=== PATIENT | male | born 2000 | race American Indian/Alaskan Native ===

== ENCOUNTER 2018-05-28 19:32 | Emergency (ER) | payer SELFPAY ==
[2018-05-28 20:32] LABS: Basophils # (Auto) 0.1 K/mm3 (0.0-0.1); Basophils % (Auto) 0.8 % (0.0-1.8); Eosinophils # (Auto) 0.2 K/mm3 (0.0-0.4); Eosinophils % (Auto) 2.5 % (0.0-4.3); Hematocrit 43.6 % (35.5-45.6); Hemoglobin 14.3 gm/dl (11.8-15.2); Lymphocytes # (Auto) 2.6 K/mm3 (1.2-5.4); Lymphocytes % (Auto) 38.6 % (13.4-35.0); Mean Corpuscular HGB Conc 33 % (32-34); Monocytes # (Auto) 0.7 K/mm3 (0.0-0.8); Platelet Count 206 K/mm3 (140-440); Red Blood Count 6.33 M/mm3 (3.65-5.03); Red Cell Distribution Width 14.5 % (13.2-15.2)
[2018-05-28 20:35] LABS: Mean Corpuscular Hemoglobin 23 pg (28-32); Mean Corpuscular Volume 69 fl (84-94)
[2018-05-28 20:49] LABS: Alanine Aminotransferase 43 units/L (7-56); Albumin 4.6 g/dL (3.9-5); BUN/Creatinine Ratio 9; Blood Urea Nitrogen 8 mg/dL (9-20); Calcium 9.4 mg/dL (8.4-10.2); Hemolysis Index 2
--- NOTE | 2018-05-28 22:23 | Emergency Department Report ---
ED Altered Mental Status HPI - General Chief Complaint: Seizure Stated Complaint: SEIZURE Time Seen by Provider: 05/28/18 22:07 Source: patient Mode of arrival: Wheelchair Limitations: No Limitations - History of Present Illness MD Complaint: altered mental status, decreased responsiveness -: Sudden Severity: Unable to Determine Consistency of Symptoms: waxing and waning Context: unknown Associated Symptoms: weakness - Related Data Previous Rx's Medication Instructions Recorded Last Taken Type SUMAtriptan SUCCINATE [Imitrex] 25 mg PO Q8H PRN #12 tablet 05/29/18 Unknown Rx Allergies Allergy/AdvReac Type Severity Reaction Status Date / Time shellfish derived Allergy Hives Verified 05/28/18 19:51 ED Review of Systems ROS: Stated complaint: SEIZURE Other details as noted in HPI Comment: All other systems reviewed and negative Constitutional: denies: chills, fever Eyes: denies: eye pain ENT: denies: ear pain Respiratory: denies: cough, shortness of breath Cardiovascular: denies: chest pain, palpitations, dyspnea on exertion, orthopnea , edema, syncope Endocrine: no symptoms reported Gastrointestinal: denies: abdominal pain, nausea, vomiting, diarrhea Genitourinary: denies: urgency, dysuria, frequency Musculoskeletal: denies: back pain, joint swelling Skin: denies: rash, lesions Neurological: weakness (Generalized). denies: headache, numbness, paresthesias , confusion Psychiatric: denies: anxiety, depression Hematological/Lymphatic: denies: easy bleeding, easy bruising ED Past Medical Hx - Past Medical History Previous Medical History?: Yes Hx Asthma: Yes - Surgical History Past Surgical History?: No - Social History Smoking Status: Current Every Day Smoker Substance Use Type: None - Medications Home Medications: Home Medications Medication Instructions Recorded Confirmed Last Taken Type SUMAtriptan SUCCINATE [Imitrex] 25 mg PO Q8H PRN #12 tablet 05/29/18 Unknown Rx ED Physical Exam - General Limitations: No Limitations General appearance: alert, lethargic - Head Head exam: Present: atraumatic, normocephalic, normal inspection - Eye Eye exam: Present: normal appearance, PERRL, EOMI Pupils: Present: normal accommodation - ENT ENT exam: Present: normal exam, normal orophraynx, mucous membranes moist - Neck Neck exam: Present: normal inspection, full ROM. Absent: tenderness - Respiratory Respiratory exam: Present: normal lung sounds bilaterally. Absent: respiratory distress, wheezes, rales, rhonchi, stridor - Cardiovascular Cardiovascular Exam: Present: regular rate, normal rhythm, normal heart sounds - GI/Abdominal GI/Abdominal exam: Present: soft, normal bowel sounds. Absent: distended, tenderness, guarding, rebound, rigid - Extremities Exam Extremities exam: Present: full ROM, normal capillary refill - Back Exam Back exam: Present: normal inspection, full ROM - Neurological Exam Neurological exam: Present: alert - Psychiatric Psychiatric exam: Present: normal affect, depressed, flat affect - Skin Skin exam: Present: warm, dry, intact, normal color. Absent: rash - Assessment Assessment Interval: Baseline - Level of Consciousness 1a. Level of Consciousness: alert/keenly responsive - LOC Questions 1b. LOC Questions: answers both correctly - LOC Command 1c. LOC Commands: performs tasks correctly - Best Gaze 2. Best Gaze: normal - Visual 3. Visual: no visual loss - Facial Palsy 4. Facial Palsy: normal symmetrical movement - Motor Arm 5b. Motor Arm Right: no drift 5a. Motor Arm Left: no drift - Motor Leg 6a. Motor Leg Left: no drift 6b. Motor Leg Right: no drift - Limb Ataxia 7. Limb Ataxia: absent - Sensory 8. Sensory: normal - Best Language 9. Best Language: no aphasia - Dysarthria 10. Dysarthria: normal - Extinction and Inattention 11. Extinction/Inattention: no abnormality - Scoring Total Score: 0 Stroke Severity: No Stroke Symptoms ED Course Vital Signs 05/28/18 05/28/18 05/29/18 19:48 22:01 06:00 Temperature 98.9 F 98.5 F Pulse Rate 76 70 73 Respiratory 16 18 Rate Blood Pressure 128/68 Blood Pressure 125/83 113/55 [Left] O2 Sat by Pulse 99 99 Oximetry - Reevaluation(s) Reevaluation #1: 05/29/18 05:10 On reevaluation, patient said his headache has resolved. - Lab Data Result diagrams: 05/28/18 20:20 05/28/18 20:20 Lab Results 05/28/18 05/28/18 05/28/18 Range/Units 20:20 20:20 20:20 WBC 6.6 (4.5-11.0) K/mm3 RBC 6.33 H (3.65-5.03) M/mm3 Hgb 14.3 (11.8-15.2) gm/dl Hct 43.6 (35.5-45.6) % MCV 69 L (84-94) fl MCH 23 L (28-32) pg MCHC 33 (32-34) % RDW 14.5 (13.2-15.2) % Plt Count 206 (140-440) K/mm3 Lymph % (Auto) 38.6 H (13.4-35.0) % [place] % (Auto) 10.0 H (0.0-7.3) % Eos % (Auto) 2.5 (0.0-4.3) % Baso % (Auto) 0.8 (0.0-1.8) % Lymph # 2.6 (1.2-5.4) K/mm3 [place] # 0.7 (0.0-0.8) K/mm3 Eos # 0.2 (0.0-0.4) K/mm3 Baso # 0.1 (0.0-0.1) K/mm3 Seg Neutrophils % 48.1 (40.0-70.0) % Seg Neutrophils # 3.2 (1.8-7.7) K/mm3 Sodium 139 (137-145) mmol/L Potassium 3.5 L (3.6-5.0) mmol/L Chloride 100.9 (98-107) mmol/L Carbon Dioxide 27 (22-30) mmol/L Anion Gap 15 mmol/L BUN 8 L (9-20) mg/dL Creatinine 0.9 (0.8-1.5) mg/dL Estimated GFR > 60 ml/min BUN/Creatinine Ratio 9 % Glucose 88 (75-100) mg/dL Calcium 9.4 (8.4-10.2) mg/dL Total Bilirubin 0.60 (0.1-1.2) mg/dL AST 33 (5-40) units/L ALT 43 (7-56) units/L Alkaline Phosphatase 52 (35-129) units/L Troponin T (0.00-0.029) ng/mL Total Protein 7.6 (6.3-8.2) g/dL Albumin 4.6 (3.9-5) g/dL Albumin/Globulin Ratio 1.5 % TSH 3.130 (0.270-4.200) mlU/mL Urine Color (Yellow) Urine Turbidity (Clear) Urine pH (5.0-7.0) Ur Specific [place] (1.003-1.030) Urine Protein (Negative) mg/dL Urine Glucose (UA) (Negative) mg/dL Urine Ketones (Negative) mg/dL Urine Blood (Negative) Urine Nitrite (Negative) Urine Bilirubin (Negative) Urine Urobilinogen (<2.0) mg/dL Ur Leukocyte Esterase (Negative) Urine WBC (Auto) (0.0-6.0) /HPF Urine RBC (Auto) (0.0-6.0) /HPF U Epithel Cells (Auto) (0-13.0) /HPF Urine Mucus /HPF Urine Opiates Screen Urine Methadone Screen Ur Barbiturates Screen Ur Phencyclidine Scrn Ur Amphetamines Screen U Benzodiazepines Scrn Urine Cocaine Screen U Marijuana (THC) Screen Drugs of Abuse Note Plasma/Serum Alcohol (0-0.07) % 05/28/18 05/28/18 05/28/18 Range/Units 20:20 22:21 22:21 WBC (4.5-11.0) K/mm3 RBC (3.65-5.03) M/mm3 Hgb (11.8-15.2) gm/dl Hct (35.5-45.6) % MCV (84-94) fl MCH (28-32) pg MCHC (32-34) % RDW (13.2-15.2) % Plt Count (140-440) K/mm3 Lymph % (Auto) (13.4-35.0) % [place] % (Auto) (0.0-7.3) % Eos % (Auto) (0.0-4.3) % Baso % (Auto) (0.0-1.8) % Lymph # (1.2-5.4) K/mm3 [place] # (0.0-0.8) K/mm3 Eos # (0.0-0.4) K/mm3 Baso # (0.0-0.1) K/mm3 Seg Neutrophils % (40.0-70.0) % Seg Neutrophils # (1.8-7.7) K/mm3 Sodium (137-145) mmol/L Potassium (3.6-5.0) mmol/L Chloride (98-107) mmol/L Carbon Dioxide (22-30) mmol/L Anion Gap mmol/L BUN (9-20) mg/dL Creatinine (0.8-1.5) mg/dL Estimated GFR ml/min BUN/Creatinine Ratio % Glucose (75-100) mg/dL Calcium (8.4-10.2) mg/dL Total Bilirubin (0.1-1.2) mg/dL AST (5-40) units/L ALT (7-56) units/L Alkaline Phosphatase (35-129) units/L Troponin T (0.00-0.029) ng/mL Total Protein (6.3-8.2) g/dL Albumin (3.9-5) g/dL Albumin/Globulin Ratio % TSH (0.270-4.200) mlU/mL Urine Color Yellow (Yellow) Urine Turbidity Clear (Clear) Urine pH 6.0 (5.0-7.0) Ur Specific [place] 1.026 (1.003-1.030) Urine Protein <15 mg/dl (Negative) mg/dL Urine Glucose (UA) Neg (Negative) mg/dL Urine Ketones Neg (Negative) mg/dL Urine Blood Neg (Negative) Urine Nitrite Neg (Negative) Urine Bilirubin Neg (Negative) Urine Urobilinogen 2.0 (<2.0) mg/dL Ur Leukocyte Esterase Neg (Negative) Urine WBC (Auto) < 1.0 (0.0-6.0) /HPF Urine RBC (Auto) 1.0 (0.0-6.0) /HPF U Epithel Cells (Auto) < 1.0 (0-13.0) /HPF Urine Mucus Few /HPF Urine Opiates Screen Presumptive negative Urine Methadone Screen Presumptive negative Ur Barbiturates Screen Presumptive negative Ur Phencyclidine Scrn Presumptive negative Ur Amphetamines Screen Presumptive negative U Benzodiazepines Scrn Presumptive negative Urine Cocaine Screen Presumptive negative U Marijuana (THC) Screen Presumptive positive Drugs of Abuse Note Disclamer Plasma/Serum Alcohol < 0.01 (0-0.07) % 05/28/18 Range/Units 22:33 WBC (4.5-11.0) K/mm3 RBC (3.65-5.03) M/mm3 Hgb (11.8-15.2) gm/dl Hct (35.5-45.6) % MCV (84-94) fl MCH (28-32) pg MCHC (32-34) % RDW (13.2-15.2) % Plt Count (140-440) K/mm3 Lymph % (Auto) (13.4-35.0) % [place] % (Auto) (0.0-7.3) % Eos % (Auto) (0.0-4.3) % Baso % (Auto) (0.0-1.8) % Lymph # (1.2-5.4) K/mm3 [place] # (0.0-0.8) K/mm3 Eos # (0.0-0.4) K/mm3 Baso # (0.0-0.1) K/mm3 Seg Neutrophils % (40.0-70.0) % Seg Neutrophils # (1.8-7.7) K/mm3 Sodium (137-145) mmol/L Potassium (3.6-5.0) mmol/L Chloride (98-107) mmol/L Carbon Dioxide (22-30) mmol/L Anion Gap mmol/L BUN (9-20) mg/dL Creatinine (0.8-1.5) mg/dL Estimated GFR ml/min BUN/Creatinine Ratio % Glucose (75-100) mg/dL Calcium (8.4-10.2) mg/dL Total Bilirubin (0.1-1.2) mg/dL AST (5-40) units/L ALT (7-56) units/L Alkaline Phosphatase (35-129) units/L Troponin T < 0.010 (0.00-0.029) ng/mL Total Protein (6.3-8.2) g/dL Albumin (3.9-5) g/dL Albumin/Globulin Ratio % TSH (0.270-4.200) mlU/mL Urine Color (Yellow) Urine Turbidity (Clear) Urine pH (5.0-7.0) Ur Specific [place] (1.003-1.030) Urine Protein (Negative) mg/dL Urine Glucose (UA) (Negative) mg/dL Urine Ketones (Negative) mg/dL Urine Blood (Negative) Urine Nitrite (Negative) Urine Bilirubin (Negative) Urine Urobilinogen (<2.0) mg/dL Ur Leukocyte Esterase (Negative) Urine WBC (Auto) (0.0-6.0) /HPF Urine RBC (Auto) (0.0-6.0) /HPF U Epithel Cells (Auto) (0-13.0) /HPF Urine Mucus /HPF Urine Opiates Screen Urine Methadone Screen Ur Barbiturates Screen Ur Phencyclidine Scrn Ur Amphetamines Screen U Benzodiazepines Scrn Urine Cocaine Screen U Marijuana (THC) Screen Drugs of Abuse Note Plasma/Serum Alcohol (0-0.07) % - EKG Data -: EKG Interpreted by Me EKG shows normal: sinus rhythm Rate: bradycardia (53) When compared to previous EKG there are: previous EKG unavailable Interpretation: nonspecific ST-T wave bora, LVH 05/28/18 22:26 No STEMI - Radiology Data Radiology results: report reviewed, image reviewed - Medical Decision Making Patient headache resolving the ED with treatment. I will discharge him home to follow up with her neurologist. Critical care attestation.: If time is entered above; I have spent that time in minutes in the direct care of this critically ill patient, excluding procedure time. ED Disposition Clinical Impression: Altered mental status, unspecified Qualifiers: Altered mental status type: unspecified Qualified Code(s): R41.82 - Altered mental status, unspecified Migraine headache Qualifiers: Migraine type: unspecified Status migrainosus presence: without status migrainosus Intractability: not intractable Qualified Code(s): G43.909 - Migraine, unspecified, not intractable, without status migrainosus Disposition: DC-01 TO HOME OR SELFCARE Is pt being admited?: No Does the pt Need Aspirin: No Condition: Stable Instructions: Migraine Headache (ED) Additional Instructions: Please follow up with Dr Toi Montemayor tomorrow morning. Return to the ED if your condition worsens. Prescriptions: SUMAtriptan SUCCINATE [Imitrex] 25 mg PO Q8H PRN #12 tablet PRN Reason: Headache Referrals: PRIMARY CARE, [Primary Care Provider] - 3-5 Days HELEN MONTEMAYOR MD [Staff Physician] - 3-5 Days Forms: Work/School Release Form(ED) Time of Disposition: 05:12
[2018-05-28 22:40] LABS: Bilirubin,Urine NEG (Negative); Blood,Urine NEG (Negative); Color,Urine Yellow (Yellow); Mucus,Urine FEW /HPF; Protein,Urine <15 mg/dL mg/dL (Negative); WBC,Urine < 1.0 /HPF (0.0-6.0)
[2018-05-28 23:02] LABS: Amphetamine Screen,Urine PRESUMPTIVE NEGATIVE; Benzodiazepines Screen,Urine PRESUMPTIVE NEGATIVE; Cocaine Screen,Urine PRESUMPTIVE NEGATIVE; Methadone Screen,Urine PRESUMPTIVE NEGATIVE; Opiate Screen,Urine PRESUMPTIVE NEGATIVE
--- NOTE | 2018-05-28 23:11 | Cat Scan Report ---
FINAL REPORT EXAM: CT HEAD/BRAIN WO CON HISTORY: ams TECHNIQUE: CT was performed from the foramen magnum through the vertex in the axial plane without the use of intravenous contrast. PRIORS: None. FINDINGS: The abraham/white matter attenuation pattern is normal. There is no mass lesion or mass effect. There are no abnormal extra-axial fluid collections. There is no evidence of acute intracranial hemorrhage or infarct. The ventricles are of normal size and configuration. The skull and orbits are unremarkable. The visualized paranasal sinuses are clear. IMPRESSION: Normal CT of the head.
[2018-05-28 23:21] LABS: Cannabinoid Screen,Urine PRESUMPTIVE POSITIVE
--- NOTE | 2018-05-28 23:28 | XRay Report ---
FINAL REPORT EXAM: XR CHEST 1V AP HISTORY: AMS TECHNIQUE: AP portable view of the chest. PRIORS: None. FINDINGS: The cardiomediastinal silhouette appears normal. The lungs are clear. Is there is irregularity of the distal right clavicle. IMPRESSION: No evidence of acute cardiopulmonary disease. Incidental irregularity of the distal right clavicle may be due to an old injury. Please correlate clinically.
[2018-05-29] MEDS ORDERED: IMITREX SUB-Q ONE (01:46)
[2018-05-29] MEDS ORDERED: NACL 0.9% 1000 ML 1,000 ML IV ONE (01:46)
[2018-05-29] MEDS ORDERED: REGLAN IV ONE (01:46)
[2018-05-29] MEDS ORDERED: TYLENOL PO ONE (01:47)
[2018-05-29 06:26] VITALS: BP 113/55
== END 2018-05-29 07:18 | disposition home or self-care (01) ==
LOC: ED 19:32
DX: R41.82 Altered mental status, unspecified (principal); G43.909 Migraine, unspecified, not intractable, without status migrainosus; J45.909 Unspecified asthma, uncomplicated; F17.200 Nicotine dependence, unspecified, uncomplicated; Z91.013 Allergy to seafood
CPT/HCPCS: 36415; 70450; 71045; 80053; 80307; 81001; 84443; 84484; 85025; 93005; 93010; 96361; 96372; 96374; 99285; G0480; J2765; J7030; 80320; J3030

== ENCOUNTER 2021-11-28 17:04 | Emergency (ER) | payer SELFPAY ==
--- NOTE | 2021-11-28 18:53 | Emergency Department Report ---
ED General Adult HPI - General Chief complaint: Chest Pain Stated complaint: CHEST PAIN Time Seen by Provider: 11/28/21 18:32 Source: patient Mode of arrival: Ambulatory Limitations: No Limitations - History of Present Illness Initial comments: 21-year-old -[place] male with past medical history of consisted of controlled asthma presents emergency department complaining of initially having a viral illness on this past Wednesday and Wednesday was completely subsided on Wednesday and and on early this morning on Wednesday around 2 AM while he was watching television in the seated position he had a sensation of feeling flushed associated with chest pressure and palpitations and upon standing and trying to ambulate he grew dizzy and had a syncopal episode with collapse and woke up with a headache. Currently continues to have dull throbbing headaches associated with episodes of dizziness and chest pressure. Palpitations come and go but he reports no hemoptysis no hematemesis medic easy, no nausea or vomiting -: Gradual Radiation: non-radiation Quality: dull Consistency: constant Improves with: none Worsens with: none Associated Symptoms: denies other symptoms Treatments Prior to Arrival: none - Related Data Previous Rx's Medication Instructions Recorded Last Taken Type SUMAtriptan SUCCINATE [Imitrex] 25 mg PO Q8H PRN #12 tablet 05/29/18 Unknown Rx Ketorolac [Toradol] 10 mg PO Q6H PRN #14 11/28/21 Unknown Rx Allergies Allergy/AdvReac Type Severity Reaction Status Date / Time shellfish derived Allergy Hives Verified 05/28/18 19:51 ED Review of Systems ROS: Stated complaint: CHEST PAIN Other details as noted in HPI Comment: All other systems reviewed and negative ED Past Medical Hx - Past Medical History Hx Asthma: Yes - Social History Smoking Status: Current Every Day Smoker Substance Use Type: None - Medications Home Medications: Home Medications Medication Instructions Recorded Confirmed Last Taken Type SUMAtriptan SUCCINATE [Imitrex] 25 mg PO Q8H PRN #12 tablet 05/29/18 Unknown Rx Ketorolac [Toradol] 10 mg PO Q6H PRN #14 11/28/21 Unknown Rx ED Physical Exam - General Limitations: No Limitations General appearance: alert, in no apparent distress - Head Head exam: Present: atraumatic, normocephalic - Eye Eye exam: Present: normal appearance, PERRL, EOMI. Absent: nystagmus, other Pupils: Present: normal accommodation - ENT ENT exam: Present: normal exam, mucous membranes moist - Neck Neck exam: Present: normal inspection - Respiratory Respiratory exam: Present: normal lung sounds bilaterally. Absent: respiratory distress, wheezes, rales, rhonchi - Cardiovascular Cardiovascular Exam: Present: regular rate, normal rhythm. Absent: systolic murmur, diastolic murmur, rubs, gallop - GI/Abdominal GI/Abdominal exam: Present: soft, normal bowel sounds - Rectal Rectal exam: Present: deferred - Extremities Exam Extremities exam: Present: normal inspection - Back Exam Back exam: Present: normal inspection - Neurological Exam Neurological exam: Present: alert, oriented X3 - Psychiatric Psychiatric exam: Present: normal affect, normal mood - Skin Skin exam: Present: warm, dry, intact, normal color. Absent: rash ED Course Vital Signs 11/28/21 17:08 Temperature 98.4 F Pulse Rate 63 Respiratory 16 Rate Blood Pressure 120/76 [Left] O2 Sat by Pulse 99 Oximetry ED Medical Decision Making - Lab Data Result diagrams: 11/28/21 18:52 11/28/21 18:52 - Radiology Data Radiology results: report reviewed [facility] [address] [place] [address] Cat Scan Report Signed Patient: ELMA ANTUNEZ JR MR#: [id number] : 2000 Acct:[id number] Age/Sex: 21 / M ADM Date: 11/28/21 Loc: ED Attending Dr: Ordering Physician: KENNEY GUTIERREZ Date of Service: 11/28/21 Procedure(s): CT head/brain wo con Accession Number(s): [id number] cc: KENNEY GUTIERREZ . CT head/brain wo con INDICATION / CLINICAL INFORMATION: 21 years Male; headache/syncope. TECHNIQUE: Routine CT head without contrast. All CT scans at this location are performed using CT dose reduction for ALARA by means of automated exposure control. COMPARISON: None. FINDINGS: BRAIN / INTRACRANIAL CONTENTS: The motion significantly degrades the image quality. However, there are scattered areas of decreased attenuation involving cerebral white matter, particularly along the right frontal subcortical region which are nonspecific. The findings may reflect microvascular changes though atypical for patient this age at. The ventricular system is within normal limits in size and configuration. There is no clear CT evidence of acute intracranial hemorrhage or significant mass effect. ORBITS: No significant abnormality of visualized orbits. SINUSES / MASTOIDS: No significant abnormality in the visualized paranasal sinuses or mastoid air cells. CRANIOCERVICAL JUNCTION: No significant abnormality. ADDITIONAL FINDINGS: None. IMPRESSION: 1. There are mild nonspecific cerebral white matter changes as described without clear CT evidence of acute intracranial hemorrhage. Signer Name: Prashant Quijano MD Signed: 11/28/2021 8:07 PM Workstation Name: [id number] Transcribed By: MR Dictated By: Prashant Quijano MD Electronically Authenticated By: Prashant Quijano MD Signed Date/Time: 11/28/212006 DD/ 03 TD/TT [facility] [address] [place] [address] XRay Report Signed Patient: ELMA ANTUNEZ JR MR#: [id number] : 2000 Acct:[id number] Age/Sex: 21 / M ADM Date: 11/28/21 Loc: ED Attending Dr: Ordering Physician: KENNEY GUTIERREZ Date of Service: 11/28/21 Procedure(s): XR chest routine 2V Accession Number(s): [id number] cc: KENNEY GUTIERREZ Fluoro Time In Minutes: CHEST 2 VIEWS INDICATION: Chest Pain. COMPARISON: 05/28/2018 FINDINGS: SUPPORT DEVICES: None. HEART: Within normal limits. LUNGS/PLEURA: No acute air space or interstitial disease. No pneumothorax. ADDITIONAL FINDINGS: None. IMPRESSION: 1. No acute findings. Signer Name: Ori Subramanian MD Signed: 11/28/2021 6:58 PM Workstation Name: [id number] Transcribed By: JW Dictated By: Ori Subramanian MD Electronically Authenticated By: Ori Subramanian MD Signed Date/Time: 11/28/211857 DD/ 57 TD/TT: Print Cancel - Medical Decision Making Chest pain palpitations This patient presents with chest pain that is very unlikely angina or acute coronary syndrome. The emergency department evaluation has not identified any cause for suspicion that this chest pain has a cardiac etiology. Based on their history, EKG (which showed no evidence of ischemia or infarction) and imaging, in addition to the patient's physical exam, I see no evidence at this time for a malignant etiology for the patient's chest pain. There is no acute evidence for pulmonary embolus, acute myocardial infarction, pneumothorax, Boerhaeve syndrome, cardiac tamponade, thoracic artery dissection, or any other emergent cardiac, pulmonary or aortic pathology. Given the low pre-test probability for cardiac etiology of chest pain and the absence of any sign of ischemia or infarction, discharge for outpatient follow-up and further evaluation is reasonable. Patient also presents to emergency department with palpitations and ECG is noted to be indicative of a normal sinus rhythm. Palpitations are unlikely secondary to other concomitant causes such as pulmonary embolus or acute coronary syndrome. The immediate cause is not apparent. Potential causes considered include but are not limited to infection, hypothyroidism, bone embolism, pericarditis, dehydration, anemia, pheochromocytoma, drug and alcohol withdrawal or intoxication among other things. Despite the evaluation including history, examination, testing, the cause of the palpitations remains unclear however the history, exam, the chest do not raise concern for any of the aforementioned diagnoses. Disposition; during emergency stay the patient's vital signs and symptoms were stable concerning I have explained to the patient that even though a cardiac problem is very unlikely, follow-up and further testing is required to reduce further the already small uncertainty that exists. Other life-threatening diagnoses have been considered. The patient understands the need to return immediately if their symptoms worsen or they develop any new symptoms, and not to engage in any significant exertional activity until follow-up is obtained. This 21-year-old patient presents with symptoms consistent with syncope, most likely due to nonemergent cause. Differential diagnosis includes vasovagal syncope, cardiovascular disorder, thyroid disorder, migraine reflux cyst syncope. Low suspicion for orthostatic syncope given lack of dehydration, no evidence of acute life-threatening hemorrhage. Presentation not consistent with seizures given short course, no postictal state, no seizure activity. Low suspicion for acute neurologic catastrophe is to include intracranial cranial hemorrhage given lack of trauma, risk factors for bleeding diathesis. Low suspicion for vascular catastrophe to include PE, thoracic aortic dissection, AAA rupture. The presentation consistent not consistent with acute life- threatening arrhythmia, structural heart disease, electrical conduction abnormalities or ACS. However given age cardio risk factor factors and history and physical will work-up and admit to telemetry Critical care attestation.: If time is entered above; I have spent that time in minutes in the direct care of this critically ill patient, excluding procedure time. ED Disposition Clinical Impression: Cephalgia, Palpitations, Chest pain Disposition: 01 HOME / SELF CARE / HOMELESS Is pt being admited?: No Does the pt Need Aspirin: No Condition: Stable Instructions: Nonspecific Chest Pain, Adult, Palpitations Additional Instructions: You were evaluated emergency department today for chest pain. Your evaluation has shown no medicals conditions requiring emergent intervention at this time, however recommend that you follow-up with your primary care physician or your plate glass installer soon as possible for further testing as an outpatient. Please schedule an appointment for follow-up with your primary care physician as soon as possible. Return to emergency department if you expands worsening uncontrolled chest pain, shortness of breath, lightheadedness, feeling faint, nausea, vomiting or any other concerning symptoms. You have been evaluated in the emergency department today for headache. Your evaluation did not show evidence of medical conditions requiring emergent intervention at this time, and your pain improved with medication. We recommend that you take Motrin and Tylenol as needed for your pain. If needed you can alternate these medications so that you take 1 every 3 hours. To be sure to follow-up with your primary care provider within 2 days for Return to emergency department if you experience worsening uncontrolled pain, vision changes, recurrent vomiting, difficulty with normal activities, abnormal behavior, difficulty walking, numbness, weakness, or any other concerning symptoms. Prescriptions: Ketorolac [Toradol] 10 mg PO Q6H PRN #14 PRN Reason: Pain Referrals: ANNIE RUSSO MD [Primary Care Provider] - 3-5 Days
--- NOTE | 2021-11-28 19:02 | XRay Report ---
CHEST 2 VIEWS INDICATION: Chest Pain. COMPARISON: 05/28/2018 FINDINGS: SUPPORT DEVICES: None. HEART: Within normal limits. LUNGS/PLEURA: No acute air space or interstitial disease. No pneumothorax. ADDITIONAL FINDINGS: None. IMPRESSION: 1. No acute findings. Signer Name: Ori Subramanian MD Signed: 11/28/2021 6:58 PM Workstation Name: [id number]
[2021-11-28 19:18] LABS: Mean Corpuscular HGB Conc 31 % (32-34); Mean Corpuscular Volume 70 fl (84-94); Platelet Count 161 K/mm3 (140-440); Red Blood Count 6.62 M/mm3 (3.65-5.03); Red Cell Distribution Width 14.2 % (13.2-15.2)
[2021-11-28 19:31] LABS: Alanine Aminotransferase 32 units/L (7-56); Albumin 4.1 g/dL (3.9-5); BUN/Creatinine Ratio 9; Blood Urea Nitrogen 7 mg/dL (9-20); Calcium 8.8 mg/dL (8.4-10.2); Hemolysis Index 7
[2021-11-28 19:56] LABS: Hematocrit 46.4 % (35.5-45.6); Hemoglobin 14.4 gm/dl (11.8-15.2)
--- NOTE | 2021-11-28 20:11 | Cat Scan Report ---
. CT head/brain wo con INDICATION / CLINICAL INFORMATION: 21 years Male; headache/syncope. TECHNIQUE: Routine CT head without contrast. All CT scans at this location are performed using CT dos e reduction for ALARA by means of automated exposure control. COMPARISON: None. FINDINGS: BRAIN / INTRACRANIAL CONTENTS: The motion significantly degrades the image quality. However, there ar e scattered areas of decreased attenuation involving cerebral white matter, particularly along the ri ght frontal subcortical region which are nonspecific. The findings may reflect microvascular changes though atypical for patient this age at. The ventricular system is within normal limits in size and c onfiguration. There is no clear CT evidence of acute intracranial hemorrhage or significant mass effe ct. ORBITS: No significant abnormality of visualized orbits. SINUSES / MASTOIDS: No significant abnormality in the visualized paranasal sinuses or mastoid air chey ls. CRANIOCERVICAL JUNCTION: No significant abnormality. ADDITIONAL FINDINGS: None. IMPRESSION: 1. There are mild nonspecific cerebral white matter changes as described without clear CT evidence of acute intracranial hemorrhage. Signer Name: Prashant Quijano MD Signed: 11/28/2021 8:07 PM Workstation Name: [id number]
[2021-11-29 03:04] LABS: Anisocytosis 1+; Basophils % (Manual) 0 % (0.0-1.8); Platelet Estimate Consistent w Auto; Total Cells Counted 100
[2021-11-29 05:05] VITALS: BP 133/79
--- NOTE | 2021-11-29 12:54 | Electrocardiograph Report ---
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
== END 2021-11-29 03:35 | disposition home or self-care (01) ==
LOC: ED 17:04
DX: R51.9 Headache, unspecified (principal); R07.89 Other chest pain; R00.2 Palpitations; J45.909 Unspecified asthma, uncomplicated; F17.200 Nicotine dependence, unspecified, uncomplicated; Z79.899 Other long term (current) drug therapy
CPT/HCPCS: 36415; 70450; 71046; 80053; 84484; 85007; 85025; 93005; 99284